=== PATIENT | male | born 2005 | race Caucasian/White ===

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

== ENCOUNTER 2024-08-06 14:39 | Emergency (ER) | payer OTHER, SELFPAY ==
[2024-08-06 14:44] VITALS: BP 119/74; PULSE 93; RESP 20; TEMP 36.6; O2SAT 100
--- OUTSIDE RECORDS SUMMARY | 2024-08-06 14:47 | XMS_ITS | Referral Summary ---
Author Organization [facility] o[facility] Address [address] [place] [address] Care Team Providers Care Cover Cutter Name Role Phone Sawyer Sheffield MD Primary Care Provider Encounters Date Type Department Care Team Description 05/14/2024 3:40 PM CDT Telemedicine [facility] Neuro Sleep [address] 6th [address] [place] [address] Andressa Villanueva, PhD Insomnia, unspecified type (Primary Dx); Circadian rhythm sleep disorder, delayed sleep phase type; Episode of recurrent major depressive disorder, unspecified depression episode severity from Last 3 Months Allergies No known active allergies Medications Belsomra 10 mg tablet Take 1 tablet (10 mg total) by mouth nightly 11/22/2023 Active cloNIDine (CATAPRES) 0.2 mg tablet Take 1 tablet (0.2 mg total) by mouth nightly at bedtime. 11/15/2023 Active dextroamphetami ne/amphetamine (ADDERALL ORAL) Take 50 mg by mouth Active Active Problems Problem Noted Date Diagnosed Date Chronic insomnia 12/08/2023 Major depressive disorder, recurrent episode, mo derate 04/02/2021 ADHD 04/02/2021 Molluscum contagiosum infection 02/04/2011 Severe episode of recurrent major depressive disorder, without psychotic features MAGGIE (generalized anxiety disorder) Substance use disorder Immunizations Immunization Administration Dates Next Due Influenza, Unspecified 12/08/2020 Social History Tobacco Use Types Packs/Day Years Used Date Smoking Tobacco: Never Smokeless Tobacco: Never Tobacco Cessation:Counseling Given: Not Answered AUDIT-C Answer Date Recorded Q1: How often do you have a drink containing alc ohol? 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 Gender Identity Not on file Sexual Orientation Not on file Last Filed Vital Signs Vital Sign Reading Time Taken Comments Blood Pressure 121/76 12/08/2023 11:55 AM CDT Pulse 64 12/08/2023 11:55 AM CDT Temperature 36.8 C (98.2 F) 12/08/2023 11:55 AM CDT Respiratory Rate 22 09/16/2022 2:45 AM CDT Oxygen Saturation 99% 12/08/2023 11:55 AM CDT Inhaled Oxygen Concentration - - Weight 86.6 kg (191 lb) 12/08/2023 11:55 AM CDT Height 185.4 cm (6' 1) 12/08/2023 11:55 AM CDT Body Mass Index 25.2 12/08/2023 11:55 AM CDT Plan of Treatment Not on file Insurance [facility] [place] [place] [address] Advance Directives For more information, please contact: [phone] * Full Code (Latest Code Status on File) Date Activated Date Inactivated Comments 03/31/2021 3:41 PM 04/07/2021 10:08 PM Care Teams Cover Cutter Relationship Specialty Start Date End Date Sawyer Sheffield MD PCP - General 07/03/20
--- OUTSIDE RECORDS SUMMARY | 2024-08-06 14:47 | XMS_ITS | Clinical Summary ---
Author Organization [facility] Address [address] [place] [address] Phone Care Team Providers Care Smokehouse Operator Name Role Phone Sawyer Sheffield MD Primary Care Provider [phone] Medications No known medications Family History Medical History Relation Name Comments Anxiety disorder Maternal Grandfather Depression Mother Relation Name Status Comments Father Alive Maternal Grandfather Mother Alive Sister (21) Alive Social History Tobacco Use Types Packs/Day Years Used Date Smoking Tobacco: Never Smokeless Tobacco: Never Tobacco Cessation:Counseling Given: Not Answered Alcohol Use Standard Drinks/Week Comments Not Currently 0 (1 standard drink = 0.6 oz pur e alcohol) Sexually Active Control Partners Comments Yes Male Sex and Gender Information Value Date Recorded Sex Assigned at Not on file 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 Gender Identity Not on file Sexual Orientation Not on file Plan of Treatment Health Maintenance Due Date Last Done Comments Hepatitis C Virus (HCV) Screening 2004 Meningococcal B Immunization (1 of 2 - Standard) 2020 SARS-COV-2 Immunization ( season) 2023 Influenza Immunization (Season Ended) 2024 12/08/2020, 12/11/2019, 01/19/2019, Additional history exists Respiratory Syncytial Virus (RSV) Immunization (Adult) (1 - 1-dose 75+ series) 05/16/2079 Hepatitis B Immunization Completed 005, 2004, 2004, Additional history exists Hepatitis A Immunization Discontinued 09/12/2007, 07/0 07/2006 Measles Mumps Rubella (MMR) Immunization Discontinued 07/21/2009, 05/28/2005 Polio (IPV) Immunization Discontinued 010, 2004, 2004, Additional history exists Varicella Immunization Discontinued 07/21/2009, 2005 DTaP/Tdap/Td Immunization Discontinued 2016, 07/21/2009, 12/14/2005, Additional history exists Meningococcal Immunization (ACWY) Aged Out 05/24/2016 No longer eligible based on patient's age to complete this topic TdaP Immunization Completed 05/24/2016 Human Papillomavirus (HPV) Immunization Completed 12/02/2016, 05/24/2016 Pneumococcal Immunization Combined Aged Out No longer eligible based on patient's age to complete this topic Rotavirus Immunization Aged Out No lo nger eligible based on patient's age to complete this topic Goals Goal Patient Goal Type Associated Problems Recent Progress Patient-Stated? Author Behavioral Health Behavioral Health On track(2022 8:13 AM CDT) Yes Brett Dominguez PSYD Note: Patient wishes to find out if he was misdiagnosed in the past, and wishes to receive a more accurate diagnosis if there is one. Insurance [facility] Care Teams Smokehouse Operator Relationship Specialty Start Date End Date Sawyer Sheffield MD [address] [place] [address] PCP - General Family Medicine 01/06/22
--- OUTSIDE RECORDS SUMMARY | 2024-08-06 14:47 | XMS_ITS | Clinical Summary ---
Author Organization [facility] ospital Address [address] [place] [address] Care Team Providers Care Link Trainer Maintenance Man Name Role Phone Sawyer Sheffield MD Primary Care Provider Allergies No known active allergies Medications Belsomra [...] MAGGIE (generalized anxiety disorder) Substance use disorder Encounters Date Type Department Care Team Description 05/14/2024 3:40 PM CDT Telemedicine [facility] Neuro Sleep [address] [place] [address] 6th [address] [place] [address] Andressa Villanueva, PhD Insomnia, unspecified type (Primary Dx); Circadian rhythm sleep disorder, delayed sleep phase type; Episode of recurrent major depressive disorder, unspecified depression episode severity from Last 3 Months Immunizations Immunization Administration Dates Next Due Influenza, [...] on file 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 Gender Identity Not on file Sexual Orientation Not on file Obstetrics History Last Filed Vital Signs Vital Sign Reading [...] 12/08/2023 11:55 AM CDT Plan of Treatment Health Maintenance Due Date Last Done Comments Depression Screening 2004 Hepatitis C Screening 2004 Meningococcal B Vaccine (1 of 2 - Standard) 2020 Regular Well Visit/Exam 18-64 2022 Influenza Vaccine (Season Ended) 2024 12/08/2020, 12/11/2019, 01/19/2019, Additional history exists DTaP/Tdap/Td Vaccine (7 - Td or Tdap) 05/24/2026 05/24/2016, 07/21/2009, 12/14/2005, Additional history exists Hepatitis B Screening Completed 2004 , 2004, 2004, Additional history exists Varicella Vaccines Completed 07/21/2009, 09/07/2005 Meningococcal Vaccine Aged Out 05/24/2016 No hollie kindra eligible based on patient's age to complete this topic HPV Vaccines Completed 12/02/2016, 05/24/2016 Pneumococcal vaccine <65 Aged Out No longer eligible based on patient's age to complete this topic Insurance [facility] Member Subscriber Plan / Payer (Ef fective 2022-Present) Name:Audi Ching Relation to Subscriber:Child Name:Fabiano Ching Date of :1973 (Home) Address: [address] [place] [address] Payer ID:[id number] (NAIC) Type:[facility] HMO/PPO Address: [place] [phone] [employer] [facility] Advance Directives For more information, please contact: [phone] * Full Code (Latest Code Status on File) Date Activated Date Inactivated Comments 03/31/2021 3:41 PM 04/07/2021 10:08 PM Care Teams Link Trainer Maintenance Man Relationship Specialty Start Date End Date Sawyer Sheffield MD PCP - General 07/03/20
--- OUTSIDE RECORDS SUMMARY | 2024-08-06 14:47 | XMS_ITS | Patient Health Record ---
Author Organization [facility] Address [address] [place] [address] Care Team Providers Care Arbitrator Name Role Phone Trent Alvarado Unavailable [phone] Reason For Referral No Information Medications Medication SIG (Take, Route, Frequency, Duration) Notes Start Date End Date Status FLUoxetine HCl 20 MG Oral 06/17/2023 Active Vyvanse 40 MG Oral 06/17/2023 Activ e MELATONIN 5MG TABLETS *Reorder f rom Medispan for eRx and Interaction Alerts* 06/17/2023 Active Azithromycin 250 MG Oral 06/17/2023 Active Amphetamine-Dextroamph et ER 25 MG Oral 06/17/2023 Active traZODone HCl 50 MG Oral 06/17/2023 Active QUEtiapine Fumarate 50 MG Oral 06/17/2023 Active Amphetamine-Dextroamph et ER 10 MG Oral 06/17/2023 Active Propranolol HCl 20 MG Oral 06/17/2023 Active cloNIDine HCl 0.1 MG Oral 06/17/2023 Active cloNIDine HCl 0.2 MG Oral 06/17/2023 Active hydrOXYzine HCl 25 MG Oral 06/17/2023 Active Ergocalciferol 1.25 MG (53687 UT) Oral 06/17/2023 Active Doxycycline Hyclate 100 MG Oral 06/17/2023 Active guanFACINE HCl ER 2 MG Oral 06/17/2023 Active hydrOXYzine Pamoate 50 MG Oral 06/17/2023 Active Social History Sex Assigned At : Social History Observation Description Sex Assigned At Male Plan Of Treatment No Information Insurance Providers Payer Name Payer Address Payer Phone Subscriber Number Group Number Insured Name Patient Relationship to Insured Coverage Start Date Coverage End Date Umr [address] [address] [place] [address] [phone] [id number] GALE ROGERS Self - patient is the insured
--- OUTSIDE RECORDS SUMMARY | 2024-08-06 14:47 | XMS_ITS ---
Author Organization [facility] [employer] Address [address] [place] [address] Care Team Providers Care Wastewater Analyst Lab Analyst Name Role Phone Trent Pickens Unavailable [phone] Medications Medication SIG (Take, Route, Frequency, Duration) Notes Start Date End Date Status Ergocalciferol 1.25 MG (58084 UT) Oral 06/17/2023 Active Vyvanse 40 MG Oral 06/17/2023 Activ e MELATONIN 5MG TABLETS *Reorder f rom Medispan for eRx and Interaction Alerts* 06/17/2023 Active Amphetamine-Dextroamph et ER 25 MG Oral 06/17/2023 Active QUEtiapine Fumarate 50 MG Oral 06/17/2023 Active Doxycycline Hyclate 100 MG Oral 06/17/2023 Active guanFACINE HCl ER 2 MG Oral 06/17/2023 Active Azithromycin 250 MG Oral 06/17/2023 Active traZODone HCl 50 MG Oral 06/17/2023 Active Amphetamine-Dextroamph et ER 10 MG Oral 06/17/2023 Active hydrOXYzine Pamoate 50 MG Oral 06/17/2023 Active Propranolol HCl 20 MG Oral 06/17/2023 Active cloNIDine HCl 0.1 MG Oral 06/17/2023 Active cloNIDine HCl 0.2 MG Oral 06/17/2023 Active hydrOXYzine HCl 25 MG Oral 06/17/2023 Active FLUoxetine HCl 20 MG Oral 06/17/2023 Active Social History Sex Assigned At : Social History Observation Description Sex Assigned At Male Encounters Encounter Location Date Provider Diagnosis [facility] Happy Hour Pal [facility] [address] [place] [address] 08/02/2023 Trent Pickens Plan Of Treatment No Information Progress Notes * GALE ROGERS BDOB:2005 (19 yo M)Acc No.[id number]:08/02/2023 Patient: GALE ORDAZ Provider: Samuel PICKENS MD :2005 A ge:18 Y S ex:Male Date:08/02/2023 [facility] [address] [id number] Subjective: * Chief Complaints: * * Medical History: * Medications: T aking Ergocalciferol 1.25 MG (88202 UT) Capsule Oral , Taking QUEtiapine Fumarate 50 MG Tablet Oral , Taking Amphetamine-Dextroamphet ER 25 MG Capsule Extended Release 24 Hour Oral , Taking MELATONIN 5MG TABLETS , Notes to Pharmacist: *Reorder from [facility] for eRx and Interaction Alerts*, Taking FLUoxetine HCl 20 MG Capsule Oral , Taking hydrOXYzine HCl 25 MG Tablet Oral , Taking cloNIDine HCl 0.2 MG Tablet Oral , Taking cloNIDine HCl 0.1 MG Tablet Oral , Taking Propranolol HCl 20 MG Tablet Oral , Taking hydrOXYzine Pamoate 50 MG Capsule Oral , Taking guanFACINE HCl ER 2 MG Tablet Extended Release 24 Hour Oral , Taking Doxycycline Hyclate 100 MG Capsule Oral , Taking Amphetamine-Dextroamphet ER 10 MG Capsule Extended Release 24 Hour Oral , Taking traZODone HCl 50 MG Tablet Oral , Taking Azithromycin 250 MG Tablet Oral , Taking Vyvanse 40 MG Capsule Oral Objective: * Vitals: Assessment: Plan: * Treatment: * Billing Information: * Visit Code: * Procedure Codes: * Electronic signature of Angela Pickens MD on 08/06/2024 at 02:47 PM CDT Sign off status: Pending * Provider: Samuel PICKENS MD Date: 08/02/2023 Generated for Erik alves/Jesus/Dion on: 08/06/2024 02:47 PM CDT
--- OUTSIDE RECORDS SUMMARY | 2024-08-06 14:47 | XMS_ITS | Clinical Summary ---
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 Gender Identity Not on file Sexual Orientation Not on file Plan of Treatment Health Maintenance Due Date Last Done Comments Annual Physical 05/16/2007 HPV Vaccines (1 - Male 3-dos e series) 05/16/2019 Meningococcal B Vaccine (1 o f 2 - Standard) 2020 Hepatitis C 2022 DTaP, Tdap and Td Vaccines ( 1 - Tdap) 05/16/2023 Hepatitis B Vaccines (1 of 3 - 19+ 3-dose series) 05/16/2023 COVID-19 Vaccine (1 - 2023-2 5 season) 2023 Meningococcal Vaccine Aged Out No hollie kindra eligible based on patient's age to complete this topic Pneumococcal Vaccine: Pediat rics (0 to 5 Years) and At-Risk Patients (6 to 49 Years) Aged Out No longer eligible b ased on patient's age to complete this topic RSV Immunizations Under 20 Months Aged Out No longer eligible based on patient's age to complete this topic Insurance [address] [place] [id number] [place] [id number]
--- OUTSIDE RECORDS SUMMARY | 2024-08-06 14:47 | XMS_ITS | Clinical Summary ---
Author Organization [facility] Address [address] [place] [address] Care Team Providers Care Area Operations Manager Name Role Phone Daphne Barrow MD Primary Care Provider [phone] Source Comments [facility],non-owned Affiliates and Associated Physician Practices is amultiple site organization consisting of ambulatory clinics and hospital sitesin [place], [place], [place] and [place]. This disclosure is being madepursuant to the Care Everywhere program and may not contain all information available regarding this patient. Last updated 17.[employer] [facility] Allergies No known active allergies Medications * Be aware that medications may not be up to date on this document. Alwaysverify current medications with the patient. sertraline (ZOLOFT) 50 MG tablet Take 1 (one) tablet by mouth once daily 30 tablet 5 09/02/2020 Active lisdexamfetamin e (VYVANSE) 40 MG capsule Take 1 (one) capsule by mouth every morning 30 capsule 11/19/2020 Active sertraline (ZOLOFT) 25 MG tablet Take 1 (one) tablet by mouth once daily 30 tablet 11/19/2020 Active amoxicillin-cla vulanate (AUGMENTIN) 875-125 MG tablet Take 1 (one) tablet by mouth 2 times daily with morning and evening meal 20 tablet 12/16/2020 Active Active Problems Problem Noted Date Diagnosed Date BMI (body mass index), pedia tric, 85% to less than 95% for age 0405/24/2016 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 ADHD (attention deficit hyperactivity disorder) 04/14/2010 Resolved Problems Problem Noted Date Diagnosed Date Resolved Date Allergic rhinitis 05/04/2010 10/08/2010 Immunizations Immunization Administration Dates Next Due DTAP/IPV 07/21/2009 DTaP VACCINE IM (6wk-6yrs) 12/14/2005,,2004,07/16 HEP A PEDS 2 DOSE 09/12/2007,08/12/2006 HEP B VACCINE, PED/ADOL 2004,09/24,2004,05/15 HIB BOOSTER 09/07/2005, 5,2004,07/16 Human Papilloma Virus Nineva lent Vaccine 12/02/2016,05/24/2016 INFLUENZA A [id number] VACCINE 01/15/2009 INFLUENZA VACCINE 11/16/2008, 8,11/29/2006,12/14,2004,2004 INFLUENZA VACCINE, QUADR. (A FLURIA, FLUZONE QUADRIVALENT; 6MO+) (IIV4) 12/16/2015 INFLUENZA VACCINE, QUADR. (F LUZONE; FLULAVAL; FLUARIX; AFLURIA QUADRIVALENT; 6MO+), 0.5 ML (IIV4) 12/11/2019,01/19/2019,11/16/2016,12/03 Influenza Nasal 11/09/2011,10/23/2010,12/25/2009 ROSIBEL VACCINE QUAD LAIV4 PF NASAL 11/01/2013,2012 MENINGOCOCCAL ACWY (MCV4P) VAC IM 05/24/2016 MMR 07/21/2009,05/28/2005 PNEUMOCOCCAL CONJ, PEDS 05/28/2005,11/27,2004,07/16 POLIO IPV 2004,2004,2004 TDAP (7yrs+) 05/24/2016 VARICELLA 07/21/2009,09/07/2005 Family History Medical History Relation Name Comments Other - Cardiac Father cardiac abla rubens --a fib Relation Name Status Comments Father Social History Tobacco Use Types Packs/Day Years Used Date Smoking Tobacco: Never Assessed PHQ-2 Answer Date Recorded PHQ2 TOTAL SCORE 3 10/27/2020 Sex and Gender Information Value Date Recorded Sex Assigned at Not on file 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 Gender Identity Not on file Sexual Orientation Not on file Last Filed Vital Signs Vital Sign Reading Time Taken Comments Blood Pressure 128/77 11/13/2020 2:44 PM CDT Pulse 67 11/13/2020 2:44 PM CDT Temperature 36.1 C (97 F) 11/25/2020 4:08 PM CDT Respiratory Rate - - Oxygen Saturation 97% 04/24/2010 10:12 AM CDT Inhaled Oxygen Concentration - - Weight 86 kg (189 lb 9.6 oz) 11/25/2020 4:08 PM CDT Height 184.2 cm (6' 0.5) 11/13/2020 2:44 PM CDT Body Mass Index - - Plan of Treatment Health Maintenance Due Date Last Done Comments HIV SCREENING 05/16/2019 MENINGOCOCCAL (Group B) VACCINE SHARED DECISION-MAKING (1 of 2 - Standard) 2020 HEPATITIS C SCREENING 05/11/2022 COVID-19 VACCINE ( season) 2023 DEPRESSION SCREENING 02/08/2024 INFLUENZA VACCINE (Season Ended) 2024 12/11/2019, 01/19/2019, 11/16/2016, Additional history exists DTAP/TDAP/TD VACCINES (7 - Td or Tdap) 05/24/2026 05/24/2016, 07/21/2009, 12/14/2005, Additional history exists ZOSTER VACCINE (1 of 2) 2054 HEPATITIS B VACCINE Completed 2004, 2004, 2004, Additional history exists PNEUMOCOCCAL VACCINE Completed 05/28/2005, 2004, 2004, Additional history exists HIB VACCINE Completed 09/07/2005, 11/08, 2004, Additional history exists MENINGOCOCCAL GROUPS A/C/Y/W VACCINE Aged Out 05/24/2016 No longer eligible based on patient's age to complete this topic HPV VACCINE Completed 12/02/2016, 05/24/2016 Goals Goal Patient Goal Type Associated Problems Recent Progress Patient-Stated? Author Use safety retraint in car Lifestyle On track( 021 2:22 PM CDT) No Rhiannon Alford, RN Insurance [facility] Address: [address] [address] Care Teams Area Operations Manager Relationship Specialty Start Date End Date Daphne Barrow MD PCP - General Pediatrics 01/13/11
--- OUTSIDE RECORDS SUMMARY | 2024-08-06 14:47 | XMS_ITS | Encounter Summary ---
Author Organization [facility] Address [address] [place] [address] Care Team Providers Care Hog Buyer Name Role Phone Char Cortes MD Unavailable Daphne Barrow MD Primary Care Provider [phone] Wood Viera MD Unavailable [phone] Low Thomas DO Unavailable [phone] Wood Viera MD Unavailable [phone] Low Thomas DO Unavailable [phone] Daphne Barrow MD Unavailable [phone] Encounter Details Date Type Department Care Team (Late st Contact Info) Description 07/21/2013 [facility] Outpatient Visit CG DEFAULT [address] [place] [address] Unknown, Provider Social History Tobacco Use Types Packs/Day Years Used Date Smoking Tobacco: Never Assessed Sex and Gender Information Value Date Recorded Sex Assigned at Not on file 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 Gender Identity Not on file Sexual Orientation Not on file documented as of this encounter Plan of Treatment Not on file documented as of this encounter Visit Diagnoses Not on filedocumented in this encounter Additional Health Concerns Infection Onset Date Last Indicated Resolved Time COVID-19 Under Investigation 11/25/2020 11/25/2020 11/26/2020 12:09 PM CDT documented as of this encounter Care Teams Hog Buyer Relationship Specialty Start Date End Date Char Cortes MD PCP - Pediatrics 01/17/09 10/05/18 Daphne Barrow MD PCP - General Pediatrics 01/13/11 [place] [address] [address], [facility] [address] [place] [address] PCP - Attributed-[place] [employer] 01/07/19 03/09/19 Low Thomas DO [address] [phone] PCP - Attributed-[place] [employer] 03/10/19 06/07/19 [place] [address] [address], [facility] [address] [place] [address] PCP - Attributed-[place] [employer] 06/08/19 06/06/20 Low Thomas DO [address] [phone] PCP - Attributed-[place] [employer] 06/07/20 09/06/20 Daphne Barrow MD [address] [phone] PCP - Attributed-[place] [employer] 09/07/20 03/26/21 documented as of this encounter
--- OUTSIDE RECORDS SUMMARY | 2024-08-06 14:47 | XMS_ITS | Encounter Summary ---
Author Organization [facility] Address [address] [place] [address] Care Team Providers Care Corporate Safety Director Name Role Phone Char Cortes MD Unavailable Daphne Barrow MD Primary Care Provider [phone] Wood Viera MD Unavailable [phone] Low Thomas DO Unavailable [phone] Wood Viera MD Unavailable [phone] Low Thomas DO Unavailable [phone] Daphne Barrow MD Unavailable [phone] Encounter Details Date Type Department Care Team (Late st Contact Info) Description 07/21/2013 [facility] Outpatient Visit EXTERNAL [facility] DEPT Unknown, Provider Social History Tobacco Use Types Packs/Day Years Used Date Smoking Tobacco: Never Assessed Sex and Gender Information Value Date Recorded Sex Assigned at Not on file 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 Gender Identity Not on file Sexual Orientation Not on file documented as of this encounter Plan of Treatment Not on file documented as of this encounter Visit Diagnoses Not on filedocumented in this encounter Additional Health Concerns Infection Onset Date Last Indicated Resolved Time COVID-19 Under Investigation 11/25/2020 11/25/2020 11/26/2020 12:09 PM CDT documented as of this encounter Care Teams Corporate Safety Director Relationship Specialty Start Date End Date Char Cortes MD PCP - Pediatrics 01/17/09 10/05/18 Daphne Barrow MD PCP - General Pediatrics 01/13/11 [place] [address] [facility], [address] [address] PCP - Attributed-[place] [employer] 01/07/19 03/09/19 Low Thomas DO [address] [place] [phone] PCP - Attributed-[place] [employer] 03/10/19 06/07/19 [place] [address] [facility] [address] [place] [address] PCP - Attributed-[place] [employer] 06/08/19 06/06/20 Low Thomas DO [address] [place] [phone] PCP - Attributed-[place] [employer] 06/07/20 09/06/20 Daphne Barrow MD [address] [place] [phone] PCP - Attributed-[place] [employer] 09/07/20 03/26/21 documented as of this encounter
--- NOTE | 2024-08-06 14:50 | ED.WOUNDLAC ---
HPI - Wound/Laceration General Chief Complaint: Wound/Laceration Stated Complaint: Laceration to Left Wrist Time Seen by Provider: 08/06/24 14:50 Source: patient and RN notes reviewed Mode of arrival: ambulatory Limitations: no limitations History of Present Illness HPI narrative: 19-year-old male presents with concern for laceration to the left wrist. Reports today he was cutting brush with a knife when he accidentally hit his left wrist. He reports some bleeding. Reports bleeding is controlled at this time. He denies any decreased strength, sensation, range of motion in the wrist, hand, digits. Patient is up-to-date his tetanus vaccination Related Data Home Medications ?Medication ?Instructions ?Recorded ?Confirmed ?Last Taken ?Type dextroamphetamine-amphetamine ER 25 mg PO DAILY 10/07/22 08/26/23 Unknown History 25 mg 24hr capsule,extend release (Adderall XR) clonidine HCl 0.2 mg tablet 0.2 mg PO DAILY PRN Sleep 02/10/23 08/26/23 Unknown History Allergies Allergy/AdvReac Type Severity Reaction Status Date / Time No Known Allergies Allergy Verified 08/06/24 14:49 Review of Systems Review of Systems: CONSTITUTIONAL: Denies malaise, chills, sweats, or fever. SKIN: Reports laceration to the left wrist MUSCULOSKELETAL: Denies muscle skeletal pain NEUROLOGIC: Denies numbness, weakness All systems reviewed & are unremarkable except as noted in HPI and below PMFSH Past Medical History Medical History BMI 24.0-24.9, adult BMI 25.0-25.9,adult BMI 26.0-26.9,adult BMI 27.0-27.9,adult Fatigue Hot flash in male Insomnia Penile discharge Family History Family History Father Heart disease Mother Depression Sibling Depression Other Hypertension Liver cancer Social History Social History Smoking status: Former smoker Second hand tobacco smoke exposure: No Smoking end date: 02/07/21 Alcohol intake: never Substance use: former Substance use type: amphetamines Do You Feel Safe in your Home?: Yes Lack of Transportation: No Lack of Food: Never True Current Housing: I Have Housing Concerned About Future Housing: No Difficulty Paying Gas/Electric Bills: No Difficulty Paying for Meds: No Currently Unemployed: No Education: High School Diploma/GED Difficulty w/ Childcare or Family Care: No Living arrangements: with family Occupation/Education: student Additional occupation/education comments: [place] Gender identity (if verbalized by the patient): Male Comments At time of signature, agree with nursing past medical, surgical, social and family history. There is no relevant family history pertinent to the presenting complaint Exam Narrative: GENERAL: Well-appearing, well-nourished, and in no acute distress. HEAD: Normocephalic EYES: PERRLA, conjunctivae clear NECK: Supple. CHEST: Speaks in full sentences. No respiratory distress. HEART: Regular rate and rhythm. Normal and equal peripheral pulses. EXTREMITIES: Left wrist, hand, and digits of hand have normal strength and sensation. Range of motion normal. No clubbing, cyanosis, or edema noted. Normal digital cascade with flexion of fingers, median, ulnar and radial nerve intact. Normal sensation of each side of finger. Normal thumb opposition. Good capillary refill and radial pulse. Distal capillary refill less than 3 seconds. SKIN: Warn, dry, intact, pink. 2 cm gaping linear laceration noted to the left dorsal wrist NEURO: Alert and oriented x3. PSYCH: Normal mood and affect Course Course Emergency Course: Patient is aware of diagnosis, understands and agrees to treatment plan. Anticipatory guidance given. Patient agrees to follow-up as directed and is aware of reasons to seek care at the emergency department. Portions of this record may have been created with voice recognition software Level of Care: Express Care Visit Vital Signs Vital signs: Vital Signs Temperature 97.9 F 08/06/24 14:44 Pulse Rate 93 08/06/24 14:44 Respiratory Rate 20 08/06/24 14:44 Blood Pressure 119/74 08/06/24 14:44 Pulse Oximetry 100 08/06/24 14:44 Oxygen Delivery Room Air 08/06/24 14:44 Temperature 97.9 F 08/06/24 14:44 Pulse Rate 93 08/06/24 14:44 Respiratory Rate 20 08/06/24 14:44 Blood Pressure 119/74 08/06/24 14:44 Pulse Oximetry 100 08/06/24 14:44 Oxygen Delivery Room Air 08/06/24 14:44 Reviewed. Procedures Laceration Laceration 1: Date: 08/06/24 Time: 15:10 Site: upper extremity Side (If applicable): left Size (cm): 2 Description: linear Depth: simple, single layer Local Anesthetic: lidocaine 1% Amount of anesthesia used (mL): 2 Pre-repair: wound explored and irrigated ====== Skin Level ====== Skin layer closed with: nylon Size (cm): 4-0 Number of sutures: 4 Technique: simple, interrupted ====== Subcutaneous Layer ====== ====== Muscle Layer ====== ====== Tendon Layer ====== MDM - Wound/Laceration MDM Narrative Medical decision making narrative: Wound explored for foreign body and copious irrigation provided with no evidence of FB. Discussed the potential of retained foreign body with the patient and signs/symptoms that should prompt the patient to immediately go to the ED for reevaluation. There was no evidence of tendon or nerve lacerations. The wound was closed with 4 simple interrupted. A sterile dressing was then applied and anticipatory guidance was provided. Tetanus prophylaxis was not given Differential Diagnosis Differential diagnosis: Likely laceration, abrasion and avulsion of skin Critical Care Time Critical Care Time Critical Care Time: No Discharge Plan Discharge Clinical Impression: Laceration Patient Disposition: Home Condition: Stable Instructions: Laceration (ED) Additional Instructions: Keep wound clean, and dry. Apply antibiotic ointment twice daily. Cover with bandage as needed to prevent contamination. Clean with soap and water twice daily, but do not soak, take baths, or swim until wound is completely healed. Do not clean with hydrogen peroxide. If any signs of infection such as redness, swelling, increasing pain, drainage of purulent discharge, streaks up your extremity develop, seek medical attention immediately. Followup with your primary care provider in 7-10 days for suture removal. After sutures are removed, keep your scar out of the sun. You may use OTC silicone pad and/or scar massage with ointment (for 10-15 min a day) after one month. Talk to your doctor if you think you are developing a keloid. Patient Language: Bermudian Prescriptions: No Action dextroamphetamine-amphetamine [Adderall XR] 25 mg capsule,extended release 24hr 25 mg PO DAILY clonidine HCl 0.2 mg tablet 0.2 mg PO DAILY PRN (Reason: Sleep) triamcinolone acetonide 0.1 % cream 1 applic topical BID Qty: 30 0RF Rx Instructions: Apply to affected area twice Follow-up/Referrals: Girma,Rm Rueda MD [Primary Care Provider] - Time of Disposition: 15:20
== END 2024-08-06 15:23 | disposition home or self-care (01) ==
PROVIDERS: Emergency Provider Nurse Practitioner; PCP Internal Medicine
DX: S61.512A Laceration without foreign body of left wrist, initial encounter (principal); Z87.891 Personal history of nicotine dependence; W26.0XXA Contact with knife, initial encounter
CPT/HCPCS: 12001; 99212; G0463; J2003